=== PATIENT | male | born 1965 | race Caucasian/White ===

== ENCOUNTER → 2021-12-20 08:35 | Outpatient (BNVA) | payer BC, SELFPAY | PROVIDERS: Referring Provider Family Medicine; Visit Provider Orthopaedic Surgery | DX: M54.42 Lumbago with sciatica, left side (principal) | CPT/HCPCS: 72120 ==

== ENCOUNTER → 2022-07-12 09:57 | Outpatient (BNVA) | payer BC, SELFPAY | PROVIDERS: PCP Nurse Practitioner Family; Visit Provider Family Medicine | DX: K92.1 Melena (principal); R19.5 Other fecal abnormalities | CPT/HCPCS: 80053; 82728; 83550; 84443; 85025 ==

== ENCOUNTER → 2024-09-26 08:18 | Outpatient (BNVA) | payer OTHER, SELFPAY | PROVIDERS: PCP Nurse Practitioner Family; Visit Provider Nurse Practitioner Family | DX: Z13.6 Encounter for screening for cardiovascular disorders (principal); Z12.5 Encounter for screening for malignant neoplasm of prostate; Z79.899 Other long term (current) drug therapy | CPT/HCPCS: 85025 ==

== ENCOUNTER → 2024-09-29 08:37 | Outpatient (BNVA) | payer OTHER, SELFPAY | PROVIDERS: PCP Nurse Practitioner Family; Visit Provider Nurse Practitioner Family | DX: Z13.6 Encounter for screening for cardiovascular disorders (principal); Z12.5 Encounter for screening for malignant neoplasm of prostate; J98.11 Atelectasis; Z79.899 Other long term (current) drug therapy | CPT/HCPCS: 71046; 80053; 80061; 81003; 82306; 83036; 84443; 85025; G0103 ==